=== PATIENT | female | born 1945 | race Caucasian/White ===

== ENCOUNTER → 2016-08-05 | Outpatient (REF) | payer MEDICARE, BC, OTHER ==
[~2016-08-05] MED LIST: ASPI81TA7 PO; ATOR1TAB18 PO; ATRO1OPD OD; CALC500T49 PO; CIPR3OPO OD; CIPR500T3 PO; CLOP75TA2 PO; LINZ290C PO; LISI10TA4 PO; LOVA1CAP17 PO; METO25TA74 PO; OMEP20CA3 PO; PANT40TA2 PO; POLYSOL OD; PREDOPD OD; SYNT75TA PO; VALA1TAB PO; [UNRECOGNIZED DRUG - CODE] OD
== END ==
LOC: M LAB REF 12:38
PROVIDERS: ATTEND Ophthalmology
DX: B00.52 Herpesviral keratitis (principal)

== ENCOUNTER 2016-08-12 13:48 | Inpatient (IN) | payer MEDICARE, BC, OTHER ==
[2016-08-12] MEDS ORDERED: CIPR500T3 PO (15:38)
[2016-08-12] MEDS ORDERED: PREDOPD OD (15:40)
[2016-08-12] MEDS ORDERED: [UNRECOGNIZED DRUG - CODE] OD (15:40)
[2016-08-12] MEDS ORDERED: POLYSOL OD (15:48)
[2016-08-12] MEDS ORDERED: ASPI81TA7 PO (15:48)
[2016-08-12] MEDS ORDERED: SYNT75TA PO (15:48)
[2016-08-12] MEDS ORDERED: CIPR3OPO OD (15:48)
[2016-08-12] MEDS ORDERED: LISI10TA4 PO (15:48)
[2016-08-12] MEDS ORDERED: PANT40TA2 PO (15:48)
[2016-08-12] MEDS ORDERED: VALA1TAB PO (15:48)
[2016-08-12] MEDS ORDERED: LINZ290C PO (15:48)
[2016-08-12] MEDS ORDERED: OMEP20CA3 PO (15:48)
[2016-08-12] MEDS ORDERED: ATRO1OPD OD (15:48)
[2016-08-12] MEDS ORDERED: CALC500T49 PO (15:48)
[2016-08-12] MEDS ORDERED: METO25TA74 PO (15:48)
[2016-08-12] MEDS ORDERED: CLOP75TA2 PO (15:48)
[2016-08-12] MEDS ORDERED: ATOR1TAB18 PO (15:48)
[2016-08-12] MEDS: GATIFLOXACIN 0.5% 2.5ML OPHTH SOL OD SCH ×7 (17:00→23:06)
[2016-08-12] MEDS: CIPROFLOXACIN 0.3% OPHTH OINTMENT OD SCH ×3 (18:32→23:40)
[2016-08-12] MEDS ORDERED: ACETAMINOPH W/CODEINE #3 TAB UD PO PRN ×2 (18:45)
[2016-08-12] MEDS ORDERED: ACETAMINOPHEN 500 MG TAB PO PRN ×2 (18:45)
--- NOTE | 2016-08-12 18:53 | HPE ---
DATE OF ADMISSION: 08/12/2016 CHIEF COMPLAINT: Keratitis, right eye. HISTORY OF PRESENT ILLNESS: This 70-year-old white female has been treated for several weeks in the office as an outpatient for a keratitis in her penetrating keratoplasty of the right eye. It started as an epithelial defect and progressed. It is located near the graft-host interface at approximately 7 o'clock, and it has grown to an epithelial defect, an infiltrate of 2 mm. Intensive [id number] antibiotic drops, ointments, and even oral medications have been started, and the situation has deteriorated. There is some question about compliance, although the patient claims compliance, and she is getting very tired, and the decision was made to admit her to the hospital to ensure compliance with intensive typical antibiotic drops and other medications. PAST MEDICAL HISTORY: 1. Keratoconus, left eye, status post penetrating keratoplasty, right eye, on 07/30/2014. 2. Essential hypertension, status post myocardial infarction in 2007 and 2014, status post cardiac stenting. 3. Hyperlipidemia. 4. She had fractures of both ankles in October 2015 after a fall. FAMILY HISTORY: Her mother is at 82 years old from myocardial infarction and diabetes mellitus. Her father is at 92 years of age from "old age." She has a sister 66 years of age with breast cancer and diabetes mellitus. She has a brother 65 years of age status post myocardial infarction. She has two sons, 45 and 40 years old, both enjoying good health. 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 She has never smoked and admits to drinking one glass of wine a month and does not use any recreational or street drugs. CURRENT MEDICATIONS: - fish oil concentrate omega-3 fatty acids 1000 mg by mouth daily - Plavix 75 mg one by mouth daily - atorvastatin 80 mg one by mouth daily - lisinopril 10 mg by mouth daily - levothyroxine 150 mcg by mouth daily - metoprolol succinate extended release 25 mg by mouth daily - omeprazole delayed release 20 mg one by mouth daily - Ciloxan ophthalmic ointment, 3/4 inch in the right eye every 3 hours - Polytrim ophthalmic solution one drop, right eye, every 1 hour, alternating with gatifloxacin one drop, right eye, every 1 hour - prednisolone acetate 1%, one drop, right eye, every 6 hours - Atropine 1% one drop, right eye, every 8 hours REVIEW OF SYSTEMS: Negative other than eye pain and discomfort. PHYSICAL EXAMINATION: The right eye is hand motions only, and its physical condition has been described as above. There is 4+ injection of the conjunctiva and infiltrated 2 mm in the graft that is indolent and not resolving. A thought was given to fungal etiology; however, scrapings were negative, and see recent laboratory report. Lungs are clear to auscultation bilaterally. Heart is regular rate and rhythm without murmur. Abdomen is soft, nontender with positive bowel sounds. Extremities are unremarkable. IMPRESSION: Indolent, unremitting keratitis of the penetrating keratoplasty with decreased vision and eye pain. We have been treating this for several weeks and getting no improvement as an outpatient. She has been admitted for intensive topical and oral medication as above. I have discussed it with the nursing staff, and they are prepared to administer these medications as ordered. I have consulted the hospitalist, asking them just to review the patient's medications for systemic issues. She will be followed as an inpatient, and I anticipate discharge in a few days upon improvement for the situation.
[2016-08-12] MEDS: POLYTRIM OPTH DROPS 10ML OD SCH ×7 (18:59→23:40)
[2016-08-12] MEDS: prednisoLONE ACET 1% OPHTH SUSP 5ML OD SCH ×2 (19:16→23:39)
[2016-08-12] MEDS: ATROPINE SULFATE 1% OP SOLN 2 ML BTL OD SCH (19:40)
[2016-08-12] MEDS: CIPROFLOXACIN 500 MG TAB PO SCH (19:40)
[2016-08-12] MEDS: ATORVASTATIN 20 MG TAB PO SCH (20:13)
--- NOTE | 2016-08-12 21:38 | CR ---
DATE OF CONSULTATION: 08/12/2016 REQUESTING PHYSICIAN: Dr. Sherwin Mackay REASON FOR CONSULTATION: Management of medical comorbidities. HISTORY OF PRESENT ILLNESS: This is a 70-year-old female who has been admitted from Dr. Mackay's office for treatment of keratitis of the right eye. The patient had developed keratitis in the eye which had penetrating keratoplasty done on July 30, 2014. It started about 1-1/2 months ago and in spite of aggressive outpatient treatment with eye drops and ointments, and oral medications, the situation has deteriorated and the patient has been getting tired and unable to give frequent eye drops, missing some dosages so the patient has been admitted to the hospital to ensure compliance and for intensive eye drop treatment, ointments and other medications. Hospitalist service has been consulted for the management of her medical comorbidities. PAST MEDICAL HISTORY: Includes: Hypertension. Hyperlipidemia. Coronary artery disease, status post myocardial infarction ([place]) in 2007 and 2014, and has cardiac stents. Hypothyroid. PAST SURGICAL HISTORY: Penetrative keratoplasty of the right eye. Fractures of both the ankles in October 2015 after a fall. SOCIAL HISTORY: The patient does not smoke. Drinks about one glass of wine a month. Does not use any recreational drugs. FAMILY HISTORY: Nothing relevant. HOME MEDICATIONS: - aspirin 81 mg daily - atorvastatin 80 mg at bedtime - Atrovent sulfate 1% solution, one drop three times a day - calcium 500 mg by mouth daily - ciprofloxacin ointment one dose every 3 hours on the right eye - ciprofloxacin tablet 500 mg by mouth twice a day - clopidogrel 7 mg daily - gatifloxacin eye drops 1 drop on the right eye every 2 hours - Synthroid 75 mcg daily - Linzess 290 mcg twice a week on Tuesday and Tuesday - lisinopril 10 mg daily - metoprolol 25 mg daily - omeprazole 20 mg by mouth twice a day - Polymyxin trimethoprim eye drop, one drop on right eye every 2 hours - prednisolone eye drop, one drop right eye every 6 hours - valacyclovir 1 gram by mouth at bedtime - pantoprazole 40 mg by mouth daily REVIEW OF SYSTEMS: The patient denies any fever or chills. She denies any chest pain, shortness of breath. She denies any abdominal pain, nausea, vomiting or diarrhea. The patient just complains of right eye pain and discharge. PHYSICAL EXAMINATION: VITAL SIGNS: As per the EMR chart, within normal limits. HEENT: Normocephalic, atraumatic. Moist mucous membranes. Anicteric eyes. CHEST: Clear to auscultation. CARDIOVASCULAR: S1, S2, regular. No rub, murmur or gallop. ABDOMEN: Soft, nontender. Bowel sounds present. EXTREMITIES: No edema. LABORATORY DATA: Unavailable. ASSESSMENT AND PLAN: This is a 70-year-old female admitted for keratitis and hospitalist service has been consulted for management of medical comorbidities. 1. Keratitis. As per Dr. Mackay. 2. Hypertension. Will continue with lisinopril, metoprolol. 3. Hypothyroid. Will continue with Synthroid. 4. Hyperlipidemia. Will continue with atorvastatin 80 mg daily 5. Gastroesophageal reflux disease (GERD). Will continue with omeprazole. 6. Deep venous thrombosis (DVT) prophylaxis has been ordered. The patient will be followed by Dr. Gordon from August 13, 2016.
[2016-08-12 22:00] VITALS: BP 105/59
[2016-08-13] MEDS: GATIFLOXACIN 0.5% 2.5ML OPHTH SOL OD SCH ×24 (00:36→23:06)
[2016-08-13] MEDS: POLYTRIM OPTH DROPS 10ML OD SCH ×24 (00:56→23:12)
[2016-08-13] MEDS: ATROPINE SULFATE 1% OP SOLN 2 ML BTL OD SCH ×3 (02:02→18:07)
[2016-08-13] MEDS: CIPROFLOXACIN 0.3% OPHTH OINTMENT OD SCH ×8 (02:48→23:20)
[2016-08-13] MEDS: CIPROFLOXACIN 500 MG TAB PO SCH ×2 (05:28→18:07)
[2016-08-13] MEDS: prednisoLONE ACET 1% OPHTH SUSP 5ML OD SCH ×4 (05:29→23:22)
[2016-08-13] MEDS: LEVOTHYROXINE 0.075 MG TAB (75 MCG) PO SCH (05:30)
[2016-08-13 06:00] VITALS: BP 125/60
[2016-08-13] MEDS ORDERED: CIPROFLOXACIN 500 MG TAB PO SCH (06:00)
[2016-08-13] MEDS ORDERED: LEVOTHYROXINE 0.15 MG TAB (150 MCG) PO SCH (06:00)
[2016-08-13 06:47] LABS: BASO % 0.6 % (0.0-1.0); EOS # 0.4 K/mm3 (0.0-0.50); LARGE UNSTAINED CELL # 0.2 K/mm3 (0.0-0.4); LARGE UNSTAINED CELL % 2.8 % (0.0-4.0); LYMPH # 1.6 K/mm3 (1.5-4.5); LYMPH % 26.6 % (24.0-44.0); MEAN CORPUSCULAR HEMOGLOBIN 34.3 pg (27.0-33.0); MEAN CORPUSCULAR HGB CONC 33.6 g/dl (32.0-36.5); MEAN CORPUSCULAR VOLUME 102.1 fl (80.0-96.0); MONO # 0.5 K/mm3 (0.0-0.8); MONO % 7.8 % (0.0-5.0); NEUTROPHILS # 3.3 K/mm3 (1.8-7.7); NEUTROPHILS % 56.2 % (36.0-66.0); PLATELET COUNT, AUTOMATED 187 k/mm3 (150-450); RED CELL DISTRIBUTION WIDTH 13.3 % (11.5-14.5); WHITE BLOOD COUNT 5.8 K/mm3 (4.0-10.0)
[2016-08-13 07:12] LABS: ANION GAP 5 MEQ/L (8-16); BLOOD UREA NITROGEN 12 MG/DL (7-18); CALCIUM LEVEL 8.5 MG/DL (8.8-10.2); CARBON DIOXIDE LEVEL 31 MEQ/L (21-32); CHLORIDE LEVEL 106 MEQ/L (98-107); CREATININE FOR GFR 0.93 MG/DL (0.55-1.02); GLOMERULAR FILTRATION RATE > 60.0 (>45); GLUCOSE, FASTING 105 MG/DL (80-110); POTASSIUM SERUM 4.3 MEQ/L (3.5-5.1); SODIUM LEVEL 142 MEQ/L (136-145)
[2016-08-13] MEDS: METOPROLOL SUCC *XL* 25MG TAB (TopROL *XL*) PO SCH (08:09)
[2016-08-13] MEDS: CLOPIDOGREL 75 MG TAB PO SCH (08:10)
[2016-08-13] MEDS: LISINOPRIL 10 MG TAB PO SCH (08:10)
[2016-08-13] MEDS: OMEGA-3 1050MG CAPSULE PO SCH (08:10)
[2016-08-13] MEDS: OMEPRAZOLE 20 MG CAP PO SCH (08:10)
--- NOTE | 2016-08-13 16:00 | IPNPDOC ---
Text Note Date of Service The patient was seen on 08/13/16. NOTE Subjective: Denies any complaints. No acute changes overnight. Has received eye drops/ointment. Objective: Vitals: (see below) General: No acute distress, laying comfortably in bed. HEENT: Moist mucous membranes. right eye swelling and corneal clouding. Neck: No JVD or lymphadenopathy Cardiac: RRR, No murmurs Pulm: Clear to auscultation b/l. No wheezing, rhonchi Abd: NT/ND + BS. Ext: No edema or cyanosis. Labs (see below) Images: Assessment/Plan 1. Keratitis - management per Dr. Mackay. 2. Hypertension. Cont lisinopril, metoprolol. 3. Hypothyroid. Cont Synthroid. 4. HLD. Will continue with atorvastatin 80 mg daily 5. GERD - Continue with omeprazole. DVT prophylaxis SCDs VS,Fishbone, I+O VS, Fishbone, I+O Laboratory Tests 08/13/16 06:31 Red Blood Count 3.62 L, Mean Corpuscular Volume 102.1 H, Mean Corpuscular Hemoglobin 34.3 H, Mean Corpuscular Hemoglobin Concent 33.6, Red Cell Distribution Width 13.3, Neutrophils (%) (Auto) 56.2, Lymphocytes (%) (Auto) 26.6, Monocytes (%) (Auto) 7.8 H, Eosinophils (%) (Auto) 6.0 H, Basophils (%) ( Auto) 0.6, Neutrophils # (Auto) 3.3, Lymphocytes # (Auto) 1.6, Monocytes # (Auto ) 0.5, Eosinophils # (Auto) 0.4, Basophils # (Auto) 0.0, Calcium Level 8.5 L Vital Signs Date Time Temp Pulse Resp B/P (MAP) Pulse Ox O2 Delivery O2 Flow Rate FiO2 08/13/16 08:09 65 125/60 08/13/16 06:00 98.0 18 94 Room Air I&O- Last 24 Hours up to 6 AM 08/13/16 06:00 Intake Total 480 ml Output Total 0 ml Balance 480 ml ANGÉLICA MILLS MD August 13, 2016 15:59
[2016-08-13] MEDS: ATORVASTATIN 20 MG TAB PO SCH (21:26)
[2016-08-13 22:00] VITALS: BP 143/67
[2016-08-14] MEDS: GATIFLOXACIN 0.5% 2.5ML OPHTH SOL OD SCH ×12 (00:01→11:31)
[2016-08-14] MEDS: POLYTRIM OPTH DROPS 10ML OD SCH ×12 (00:10→11:43)
[2016-08-14] MEDS: ATROPINE SULFATE 1% OP SOLN 2 ML BTL OD SCH ×2 (02:01→11:43)
[2016-08-14] MEDS: CIPROFLOXACIN 0.3% OPHTH OINTMENT OD SCH ×4 (02:09→11:43)
[2016-08-14] MEDS: prednisoLONE ACET 1% OPHTH SUSP 5ML OD SCH ×2 (05:13→11:44)
[2016-08-14 06:00] VITALS: BP 122/57
[2016-08-14] MEDS: CIPROFLOXACIN 500 MG TAB PO SCH (06:07)
[2016-08-14] MEDS: LEVOTHYROXINE 0.075 MG TAB (75 MCG) PO SCH (06:07)
[2016-08-14] MEDS ORDERED: LOVA1CAP17 PO (08:35)
[2016-08-14 09:40] VITALS: BP 142/80
[2016-08-14] MEDS: OMEGA-3 1050MG CAPSULE PO SCH (10:28)
[2016-08-14] MEDS: CLOPIDOGREL 75 MG TAB PO SCH (10:29)
[2016-08-14] MEDS: LISINOPRIL 10 MG TAB PO SCH (10:29)
[2016-08-14 10:30] VITALS: BP 142/80
[2016-08-14] MEDS: METOPROLOL SUCC *XL* 25MG TAB (TopROL *XL*) PO SCH (10:30)
[2016-08-14] MEDS: OMEPRAZOLE 20 MG CAP PO SCH (10:31)
--- NOTE | 2016-08-14 14:35 | IPNPDOC ---
Text Note Date of Service The patient was seen on 08/14/16. NOTE Subjective: Denies any complaints. No acute changes overnight. Objective: Vitals: (see below) General: No acute distress, laying comfortably in bed. HEENT: Moist mucous membranes. Right eye swelling, however less swollen than yesterday. Corneal clouding. No pain Neck: No JVD or lymphadenopathy Cardiac: RRR, No murmurs Pulm: Clear to auscultation b/l. No wheezing, rhonchi Abd: NT/ND + BS. Ext: No edema or cyanosis. Labs (see below) Images: Assessment/Plan 1. Keratitis - management per Dr. Mackay. 2. Hypertension. Cont lisinopril, metoprolol. 3. Hypothyroid. Cont Synthroid. 4. HLD. Will continue with atorvastatin 80 mg daily 5. GERD - Continue with omeprazole. DVT prophylaxis SCDs VS,Fishbone, I+O VS, Fishbone, I+O Vital Signs Date Time Temp Pulse Resp B/P (MAP) Pulse Ox O2 Delivery O2 Flow Rate FiO2 08/14/16 10:30 65 142/80 08/14/16 09:40 97.8 14 94 Room Air I&O- Last 24 Hours up to 6 AM 08/14/16 05:59 Intake Total 1680 ml Output Total 0 ml Balance 1680 ml ANGÉLICA MILLS MD August 14, 2016 14:35
--- NOTE | 2016-08-14 20:09 | DSES ---
DATE OF ADMISSION: 08/12/2016 DATE OF DISCHARGE: 08/14/2016 STUDIES: None. ADMITTING DIAGNOSIS: Keratitis, left eye. DISCHARGE DIAGNOSIS: Keratitis, left eye. ACTIVITIES: As tolerated. DIET: Regular as tolerated. DISABILITY: The patient has hand motion only visual acuity to the right eye. HOSPITAL COURSE: She was admitted to ensure compliance with topical and oral medications. She had been progressing for several weeks with presumed bacterial keratitis of unknown organism status post keratoplasty of the right eye. Over the course of admission, she had less pain, and it is felt her vision was improving. She will be discharged with close followup in my office on the date of discharge. DISCHARGE MEDICATIONS: - aspirin 81 mg by mouth daily - atorvastatin calcium 80 mg by mouth at bedtime - atropine sulfate one drop, right eye, three times a day - clopidogrel bisulfate 75 mg by mouth daily - calcium 500 mg by mouth daily - ciprofloxacin HCL 500 mg by mouth twice a day - ciprofloxacin ointment 0.3% ophthalmic, 3/4 inch in right eye every 3 hours - gatifloxacin ophthalmic one drop, right eye, every hour - levothyroxine sodium 5 mg by mouth daily - linaclotide base, also called Linzess, Tuesday and Tuesdays, 290 mcg by mouth twice a week - lisinopril 10 mg by mouth daily - metoprolol succinate extended release 25 mg by mouth daily - omeprazole 20 mg by mouth twice a day - pantoprazole sodium 40 mg by mouth daily - polymyxin trimethoprim ophthalmic solution one drop, right eye, every hour - prednisolone acetate 1% ophthalmic suspension one drop, right eye, every 6 hours - valacyclovir hydrochloride 1 gram by mouth daily at bedtime - acetaminophen 500 mg one to two by mouth every 6 hours as needed pain
== END 2016-08-14 11:50 | disposition home or self-care (01) | DRG 921 ==
LOC: M MS5PR 14:41
PROVIDERS: ADMIT Ophthalmology; ATTEND Ophthalmology
DX: H59.89 Other postprocedural complications and disorders of eye and adnexa, not elsewhere classified (principal); H16.9 Unspecified keratitis; Z79.82 Long term (current) use of aspirin; Z79.899 Other long term (current) drug therapy; I10 Essential (primary) hypertension; E78.5 Hyperlipidemia, unspecified; I25.10 Atherosclerotic heart disease of native coronary artery without angina pectoris; I25.2 Old myocardial infarction; E03.9 Hypothyroidism, unspecified; K21.9 Gastro-esophageal reflux disease without esophagitis

== ENCOUNTER → 2018-08-18 | Outpatient (CLI) | payer MEDICARE, BC, OTHER ==
[~2018-08-18] MED LIST changes: +ASPI1TAB15 PO; -ASPI81TA7 PO; -ATOR1TAB18 PO; +ATOR80TA59 PO; +CALC500T68 PO; +GATI1SOL2 OD; +METO1TAB32 PO; -METO25TA74 PO; -PANT40TA2 PO; +PANT40TA3 PO; +PROL60SO SC; +STOO100C PO; +SYST1SOL4 OD; -VALA1TAB PO; +VALA1TAB2 PO; -[UNRECOGNIZED DRUG - CODE] OD
[2018-08-18 11:15] LABS: BASO % 0.4 % (0.0-1.0); EOS # 0.2 10^3/uL (0.0-0.50); EOS % 4.6 % (0.0-3.0); HEMATOCRIT 37.7 % (36.0-47.0); LYMPH # 1.2 10^3/uL (1.5-4.5); LYMPH % 24.9 % (24.0-44.0); MEAN CORPUSCULAR HEMOGLOBIN 35.1 pg (27.0-33.0); MEAN CORPUSCULAR HGB CONC 34.5 g/dl (32.0-36.5); MEAN CORPUSCULAR VOLUME 101.9 fl (80.0-96.0); MONO # 0.6 10^3/uL (0.0-0.8); MONO % 12.1 % (0.0-5.0); NEUTROPHILS # 2.7 10^3/uL (1.8-7.7); NEUTROPHILS % 57.8 % (36.0-66.0); PLATELET COUNT, AUTOMATED 163 10^3/uL (150-450); WHITE BLOOD COUNT 4.6 10^3/uL (4.0-10.0)
[2018-08-18 11:36] LABS: ERYTHROCYTE SEDIMENTATION RATE 23 mm/hr (0-30)
[2018-08-18 11:42] LABS: HEMOGLOBIN A1c 6.3 %
[2018-08-18 11:44] LABS: C REACTIVE PROTEIN QUANTITATIV < 0.30 MG/DL (0.00-0.30); CHOLESTEROL LEVEL 143 MG/DL (<200); CHOLESTEROL RISK RATIO 3.487 (<5); HDL CHOLESTEROL 41 MG/DL (>40); LDL CHOLESTEROL 71 MG/DL (<100); NON-HDL-C 102 MG/DL; TRIGLYCERIDES LEVEL 157 MG/DL (<150)
== END ==
LOC: M LAB 10:45
PROVIDERS: ATTEND Ophthalmology
DX: T86.840 Corneal transplant rejection (principal); Y92.89 Other specified places as the place of occurrence of the external cause; Z79.899 Other long term (current) drug therapy; Z79.82 Long term (current) use of aspirin

== ENCOUNTER 2018-09-11 06:46 | Day surgery (SDC) | payer MEDICARE, BC, OTHER ==
[~2018-09-11] VITALS: Ht 156.2 cm; Wt 69.3 kg
[~2018-09-11 06:46] MED LIST changes: +ACETAMINOPHEN 325 MG TAB PO PRN; +AcetaZOLAMIDE 500MG INJECTION (J1120) IV ONE; +BETAMETHASONE SOLUSPAN 6MG/ML INJ 5ML (J0702) As Ordered ONE; +HEALON DUET PRO(HEALON 10MG/ML 0.55ML & HEALON ENDOCOAT 30MG/ML 0.85ML) As Ordered ONE; +MANNITOL 20% BAG 250 ML IV ONE; +POVIDONE-IODINE 5% OPHTH PREP SOL 30ML As Ordered ONE; +TOBRADEX OPHTH OINT 3.5 GM As Ordered ONE; +TOBRAMYCIN INJ 80 MG/2 ML VIAL (J3260) As Ordered ONE
[2018-09-11] MEDS ORDERED: OFLOXACIN 0.3 % (OCUFLOX) OPTH SOL 5ML OD ONE (07:00)
[2018-09-11] MEDS ORDERED: LIDOCAINE 3.5 % 1ML OPHTH TOPICAL GEL OU ONE (07:00)
[2018-09-11] MEDS ORDERED: fentaNYL 100 MCG/2 ML INJECTION (J3010) As Ordered ONE (07:43)
[2018-09-11] MEDS ORDERED: PROPOFOL 200 MG/20 ML VIAL As Ordered ONE (07:43)
[2018-09-11] MEDS ORDERED: ONDANSETRON 4MG/2ML VIAL (J2405) As Ordered ONE (07:43)
[2018-09-11] MEDS ORDERED: dexameTHASONE 4 MG/ML 1ML VIAL (J1100) As Ordered ONE (07:43)
[2018-09-11] MEDS ORDERED: LIDOCAINE 2% INJ 100 MG/5 ML SDV (FOR ANES.) As Ordered ONE (07:43)
[2018-09-11] MEDS ORDERED: MIDAZOLAM INJ 2 MG/2 ML VIAL (J2250) As Ordered ONE (07:44)
[2018-09-11] MEDS ORDERED: FILTER 1.2 MICRON (ADULT TPN/MANNITOL/REMICADE) XX ONE (08:00)
[2018-09-11] MEDS ORDERED: PHENYLephrine HCL 500 MCG/5 ML (100MCG/ML) SYRINGE (J2370) As Ordered ONE (09:03)
[2018-09-11] MEDS ORDERED: ACETYLCHOLINE OPHTH SOLN 1% 2ML (MIOCHOL-E) As Ordered ONE (09:32)
[2018-09-11] MEDS ORDERED: ePHEDrine SULFATE 25 MG/5 ML(5MG/ML) SYRINGE As Ordered ONE (09:36)
[2018-09-11] MEDS ORDERED: NORCO, ANEXSIA 5/325MG TABLET (HYDROcodone/ACETAMINOPHEN) As Ordered ONE (10:39)
[2018-09-11] MEDS ORDERED: TRIMETHOBENZAMIDE 300 MG CAP PO PRN (10:45)
[2018-09-11] MEDS ORDERED: NORCO, ANEXSIA 5/325MG TABLET (HYDROcodone/ACETAMINOPHEN) PO PRN (10:45)
[2018-09-11] MEDS ORDERED: fentaNYL 100 MCG/2 ML INJECTION (J3010) IV PRN (10:45)
[2018-09-11] MEDS ORDERED: KETOROLAC 0.5% OPHTH SOLN OD ONE (10:45)
[2018-09-11] MEDS ORDERED: LR 1,000 ML IV SCH (10:45)
[2018-09-11] MEDS ORDERED: ONDANSETRON 4MG/2ML VIAL (J2405) IV PRN (10:45)
[2018-09-11 11:40] VITALS: BP 145/67
--- NOTE | 2018-09-12 14:19 | RO ---
DATE OF PROCEDURE: 09/11/2018 PREPROCEDURE DIAGNOSIS: Failed corneal graft, right eye. POSTPROCEDURE DIAGNOSIS: Failed corneal graft, right eye. PROCEDURE: Penetrating keratoplasty in the right eye. SURGEON: Dr. Pamela Ramos. ROADWAY DESIGNER: None. ANESTHESIA: General. DESCRIPTION OF PROCEDURE: The patient was brought to the operating room and laid in supine position. The eye was prepped and draped in a sterile fashion for ophthalmic surgery after the patient was intubated. Donor cornea was examined and then the corneal punch was used to prepare the tissue. Attention was then diverted to the patient's cornea which was heavily vascularized. With the help of the judie blade incisions to the right and the left, the host cornea was removed. Throughout the procedure EndoCoat was injected into the anterior chamber. Previously placed sutures were removed and the new cornea was placed using interrupted #10-0 nylon sutures. All of the knots were buried. Throughout the procedure, the anterior chamber was maintained using balanced salt solution (BSS). At the end of the case, tenon triamcinolone and tobramycin injections were given. The lid speculum was removed and patient was extubated and returned to the recovery room. One note, prior to surgery, patient received Mannitol and Diamox in standard doses.
== END 2018-09-11 11:56 | disposition home or self-care (01) ==
LOC: M SDC 06:46
PROVIDERS: ATTEND Ophthalmology
DX: T86.841 Corneal transplant failure (principal); I25.10 Atherosclerotic heart disease of native coronary artery without angina pectoris; I25.2 Old myocardial infarction; E03.9 Hypothyroidism, unspecified; K59.00 Constipation, unspecified; K21.9 Gastro-esophageal reflux disease without esophagitis; R94.5 Abnormal results of liver function studies; E78.5 Hyperlipidemia, unspecified; R73.03 Prediabetes; M12.9 Arthropathy, unspecified; M81.0 Age-related osteoporosis without current pathological fracture; Z79.899 Other long term (current) drug therapy; Z79.82 Long term (current) use of aspirin; Z86.2 Personal history of diseases of the blood and blood-forming organs and certain disorders involving the immune mechanism; Z87.81 Personal history of (healed) traumatic fracture; Z78.0 Asymptomatic menopausal state; Z95.5 Presence of coronary angioplasty implant and graft; Z90.710 Acquired absence of both cervix and uterus
CPT/HCPCS: 65730; 87070; 87075; 87102; 88300; J0702; J1100; J1120; J2250; J2370; J2405; J3010; J3260; V2785

== ENCOUNTER → 2019-04-11 | Outpatient (REF) | payer MEDICARE, BC, OTHER ==
[~2019-04-11] MED LIST changes: -ACETAMINOPHEN 325 MG TAB PO PRN; -AcetaZOLAMIDE 500MG INJECTION (J1120) IV ONE; -BETAMETHASONE SOLUSPAN 6MG/ML INJ 5ML (J0702) As Ordered ONE; -HEALON DUET PRO(HEALON 10MG/ML 0.55ML & HEALON ENDOCOAT 30MG/ML 0.85ML) As Ordered ONE; -MANNITOL 20% BAG 250 ML IV ONE; +MM S100C PO; +OMEP1CAP73 PO; -OMEP20CA3 PO; -POVIDONE-IODINE 5% OPHTH PREP SOL 30ML As Ordered ONE; -STOO100C PO; -TOBRADEX OPHTH OINT 3.5 GM As Ordered ONE; -TOBRAMYCIN INJ 80 MG/2 ML VIAL (J3260) As Ordered ONE; -VALA1TAB2 PO; +VALA1TAB64 PO
== END ==
LOC: M LAB REF 16:42
PROVIDERS: ATTEND Ophthalmology
DX: H02.413 Mechanical ptosis of bilateral eyelids (principal)